=== PATIENT | female | born 1965 | race Hispanic/Latino ===

== ENCOUNTER 2019-07-07 10:10 | Outpatient (CLI) | payer OTHER ==
--- NOTE | 2019-07-07 11:22 | ULT ---
PELVIC ULTRASOUND: HISTORY: Pelvic pain. COMPARISON: None. TECHNIQUE: Transabdominal and endovaginal imaging of the pelvis is performed. Ovaries are interrogated with gra y scale, color flow, Doppler imaging, and spectral waveform analysis. FINDINGS: Uterus is identified measuring 4.6 x 2.9 x 6.8 cm. Endometrium has a diameter of 0.2 cm. Right ovary has a normal echotexture, measuring 1.2 x 0.9 x 1.4 cm. The left ovary is not appreciated on the endovaginal images. The transabdominal images are suboptima l. Questionable left ovary measuring 1.3 x 2.0 x 1.7 cm. There is no free fluid. OVARIAN DOPPLER: There is vascular flow to the right ovary. Flow to the left ovary cannot be demonstrated, likely due to technical limitations. IMPRESSION: Limited evaluation of left ovary. Otherwise, unremarkable pelvic ultrasound. If there is concern fo r left adnexal pathology, consider pelvic MRI. POS: [facility]
== END 2019-07-07 10:11 | disposition home or self-care (01) ==
LOC: SCSULT 10:10
PROVIDERS: ATTEND Family Medicine
DX: R10.2 Pelvic and perineal pain (principal)
CPT/HCPCS: 76856